=== PATIENT | female | born 2000 | race Caucasian/White ===

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

== ENCOUNTER 2022-01-05 08:21 | Emergency (ER) | payer OTHER ==
[2022-01-05] MEDS ORDERED: TORAdol 30 mg Injection IM ONE (08:39)
[2022-01-05] MEDS ORDERED: TORAdol 30 mg Injection ONE (08:41)
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
[2022-01-05 09:10] LABS: Appearance CLEAR (CLEAR); Bilirubin NEGATIVE (NEGATIVE); Dipstick done @ ? MAIN LAB; Glucose NEGATIVE (NEGATIVE); Ketones NEGATIVE (NEGATIVE); Mucus SLIGHT /HPF (NEGATIVE); Nitrite NEGATIVE (NEGATIVE); Ph 7.5 (5-6); Protein,Urine Dip NEGATIVE (Negative); RBC NEGATIVE Ery/ul (0-5); Urobilinogen 0.2 mg/dL (0-1)
[2022-01-05 09:17] LABS: Urine Cultured Indicated? NO
[2022-01-05 09:37] VITALS: BP 118/70; PULSE 98
[2022-01-05 09:41] VITALS: O2SAT 99
== END 2022-01-05 09:47 | disposition home or self-care (01) ==
LOC: ED 08:21
DX: S39.012A Strain of muscle, fascia and tendon of lower back, initial encounter (principal); Z28.310 Unvaccinated for COVID-19
CPT/HCPCS: 81015; 81025; 96372; 99283; J1885

== ENCOUNTER 2023-09-14 22:56 | Emergency (ER) | payer OTHER ==
[2023-09-14 23:16] VITALS: RESP 18; TEMP 96.2
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
[2023-09-14 23:35] VITALS: BP 96/68; PULSE 82
[2023-09-14 23:42] VITALS: O2SAT 98
== END 2023-09-14 23:48 | disposition home or self-care (01) ==
LOC: ED 22:56
DX: T22.211A Burn of second degree of right forearm, initial encounter (principal); W39.XXXA Discharge of firework, initial encounter
CPT/HCPCS: 99281

== ENCOUNTER 2024-04-30 16:03 | Emergency (ER) | payer OTHER | END 2024-04-30 19:30 | disposition left against medical advice (07) | LOC: ED 16:03 | DX: Z53.21 Procedure and treatment not carried out due to patient leaving prior to being seen by health care provider (principal) ==